=== PATIENT | female | born 1930 | race Caucasian/White ===

== ENCOUNTER 2019-11-01 09:08 | Day surgery (SDC) | payer MEDICARE, OTHER ==
[2019-11-01] VITALS (12 sets, daily range): BP systolic 130–172; BP diastolic 62–96
[~2019-11-01] VITALS: Ht 154.9 cm; Wt 45.8 kg
[2019-11-01] MEDS ORDERED: WARF1TAB83 PO (09:35)
[2019-11-01] MEDS ORDERED: ATOR40TA72 PO (09:35)
[2019-11-01] MEDS ORDERED: POTA10TA36 PO (09:35)
[2019-11-01] MEDS ORDERED: MECO10005 (09:35)
[2019-11-01] MEDS ORDERED: NITR0.4T51 SL (09:35)
[2019-11-01] MEDS ORDERED: LEVO125T PO (09:35)
[2019-11-01] MEDS ORDERED: NORT25CA PO (09:35)
[2019-11-01] MEDS ORDERED: FURO20TA4 PO (09:35)
[2019-11-01] MEDS ORDERED: PHYT100T PO (09:35)
[2019-11-01] MEDS ORDERED: normal saline 1,000 ML IV SCH (09:40)
[2019-11-01] MEDS ORDERED: diphenhydrAMINE 25mg capsule PO PRN (09:40)
[2019-11-01 10:18] LABS: BASOPHILS % (AUTO) 0.2 % (0-1); EOSINOPHILS % (AUTO) 0.5 % (0-6); HEMATOCRIT 32.6 % (35.0-45.0); HEMOGLOBIN 10.7 g/dl (12.0-16.0); LYMPHOCYTES # (AUTO) 0.9 X10'3 (1.1-4.8); LYMPHOCYTES % (AUTO) 17.8 % (21-51); MEAN CORPUSCULAR HEMOGLOBIN 28.5 PG (27.0-31.0); MEAN CORPUSCULAR HGB CONC 32.7 g/dL (33.0-36.5); MEAN CORPUSCULAR VOLUME 87.1 FL (78-98); MEAN PLATELET VOLUME 6.9 FL (7.4-10.4); MONOCYTES # (AUTO) 0.4 X10'3 (0-0.9); MONOCYTES % (AUTO) 7.8 % (2-12); NEUTROPHILS # (AUTO) 3.9 X10'3 (1.8-7.7); NEUTROPHILS % (AUTO) 73.7 % (42-75); PLATELET COUNT 322 X10'3 (140-440); RED BLOOD COUNT 3.74 X10'6 (4.20-5.60); RED CELL DISTRIBUTION WIDTH 18.2 % (11.5-14.5); WHITE BLOOD COUNT 5.3 X10'3 (4.5-11.0)
[2019-11-01 10:28] LABS: ALBUMIN 3.6 G/DL (3.4-5.0); ANION GAP 7 (8-16); BLOOD UREA NITROGEN 17 MG/DL (7-18); BUN/CREATININE RATIO 16.3 (6.6-38.0); CALCIUM 9.1 MG/DL (8.5-10.1); CHLORIDE 106 MMOL/L (99-107); CREATININE 1.04 MG/DL (0.40-0.90); GLUCOSE 97 MG/DL (70-104); MAGNESIUM 2.4 MG/DL (1.5-2.4); POTASSIUM 4.2 MMOL/L (3.5-5.1); SODIUM 142 MMOL/L (135-145); TOTAL CARBON DIOXIDE 28.9 MMOL/L (24-32); eGFR 50 ML/MIN
[2019-11-01] MEDS ORDERED: midazolam 2 mg/2 ml injection ONE (10:40)
[2019-11-01] MEDS ORDERED: LIDOcaine 1% (10mg/ml)w/preservative injection 20ml MDV ONE (10:40)
[2019-11-01] MEDS ORDERED: iohexol 350MG/ML 100ml bottle IV ONE (10:40)
[2019-11-01] MEDS ORDERED: fentaNYL/PF 50MCG/1 ML 2ML syringe ONE (10:40)
[2019-11-01] MEDS ORDERED: iohexol 350 MG/ML 50ML vial IV ONE ×2 (10:40→11:48)
[2019-11-01] MEDS ORDERED: normal saline 1000ml 1,000 ML IV SCH (12:40)
[2019-11-01] MEDS ORDERED: OXAZEpam 15mg capsule PO PRN (12:40)
[2019-11-01] MEDS ORDERED: HYDROcodone/acetaminophen 5mg/325mg tablet PO PRN (12:40)
[2019-11-01] MEDS ORDERED: HYDROcodone/acetaminophen 10/325mg tab PO PRN (12:40)
== END 2019-11-01 15:30 | disposition home or self-care (01) ==
LOC: SSTAY O 09:08
PROVIDERS: ATTEND Internal Medicine Cardiovascular Disease
DX: R06.09 Other forms of dyspnea (principal); I25.10 Atherosclerotic heart disease of native coronary artery without angina pectoris; I25.2 Old myocardial infarction; I25.82 Chronic total occlusion of coronary artery; Z95.1 Presence of aortocoronary bypass graft; Z79.899 Other long term (current) drug therapy; Z79.01 Long term (current) use of anticoagulants
CPT/HCPCS: 36415; 80048; 83735; 85025; 85610; 93005; 93461; 99152; 99153; C1760; C1769; C1894; J1644; J2001; J2250; J3010; Q9967; A4620; A6258; C1751

== ENCOUNTER 2022-06-29 17:17 | Emergency (ER) | payer MEDICARE, OTHER ==
[~2022-06-29] VITALS: Ht 154.9 cm; Wt 40.5 kg
[~2022-06-29 17:17] MED LIST: ATOR40TA72 PO; FURO20TA4 PO; LEVO125T PO; MECO10005; NITR0.4T51 SL; NORT25CA PO; PHYT100T PO; POTA-206 PO; WARF1TAB83 PO
[2022-06-29 17:29] VITALS: BP 151/70
== END 2022-06-29 19:33 | disposition home or self-care (01) ==
LOC: ER 17:18
DX: S61.412A Laceration without foreign body of left hand, initial encounter (principal); X58.XXXA Exposure to other specified factors, initial encounter; Y93.89 Activity, other specified; Y92.89 Other specified places as the place of occurrence of the external cause; Y99.8 Other external cause status
CPT/HCPCS: 12002; 99282; A6449